=== PATIENT | female | born 1935 | race Caucasian/White ===

== ENCOUNTER 2017-03-08 13:53 | Inpatient (IN) | payer OTHER ==
[~2017-03-08] VITALS: Ht 154.9 cm; Wt 63.5 kg
[2017-03-08] MEDS ORDERED: SIMVASTATIN10 M1 PO (15:57)
[2017-03-08] MEDS ORDERED: DONEPEZIL HCL5 MG PO (15:57)
[2017-03-08] MEDS ORDERED: SERTRALINE HCL50 MG PO (15:59)
[2017-03-08] MEDS ORDERED: ASPIRIN EC81 M1 PO (15:59)
[2017-03-08] MEDS ORDERED: MULTI-DAY VITA1 EACH PO (16:00)
[2017-03-08] MEDS ORDERED: CALCIUM600 M3 PO (16:00)
[2017-03-08] MEDS ORDERED: VITAMIN C500 M7 PO (16:01)
--- NOTE | 2017-03-08 16:20 | ED GI/GU/ABDOMINAL COMPLAINT ---
History of Present Illness General Chief Complaint: General Adult Stated Complaint: NO BM X 10 DAYS Source: family Exam Limitations: dementia Allergies Coded Allergies: No Known Allergies (03/08/17) Reconcile Medications Ascorbic Acid (Vitamin C) (Unknown Strength) CAPSULE.ER (Unknown Dose) PO DAILY SUPPLEMENT (Reported) Aspirin (Ecotrin*) 81 MG TABLET.DR 1 TAB PO DAILY HEART/BLOOD (Reported) Calcium (Elemental-Fr Calcarb) (Calcium) (Unknown Strength) TABLET (Unknown Dose) PO DAILY SUPPLEMENT (Reported) Donepezil HCl 5 MG TABLET 1 TAB PO DAILY MEMORY (Reported) Multivitamin (Multi-Day Vitamins) 1 EACH TABLET 1 TAB PO DAILY SUPPLEMENT ( Reported) Sertraline HCl 50 MG TABLET 1 TAB PO DAILY ANXIETY/DEPRESSION (Reported) Simvastatin (Simvastatin*) 10 MG TABLET 0.5 TAB PO QPM CHOLESTEROL (Reported) Triage Note: PT TO ED WITH FOR NO BM X 10 DAYS. PT HAS ADVANCED ALZHEIMERS PER . STATES PT HAS GONE UP TO 5 DAYS WITH NO BM, BUT NEVER 10. HAS NOT TRIED OTC MEDS. STATES PT DOES NOT COMPLAIN ABOUT PAIN SHE DOES NOT SPEAK. Triage Nurses Notes Reviewed? yes ? N Is pt currently ? No HPI: This patient is an 81-year-old female with a past medical history including Alzheimer's disease who was brought into the emergency department today by her and son for evaluation of constipation. This patient is nonverbal at baseline. The patient's reported that over the last several years she can go up to 5 days without having a bowel movement. Recently she has become incontinent and wears Depends. The patient has been reported that he discontinued giving her her medication approximately 2 weeks ago which includes Aricept and aspirin as well as other vitamins due to the fact that she was not swallowing well. He also reported that it has been approximately 10 days of the patient not having a bowel movement. He reported that occasionally he will notice some soft stool in the diaper and sometimes he will remove some stool himself from the rectum, but other than that has not had a normal bowel movement. Because she is nonverbal, she has not complained of any pain. He denied seeing any blood in the stool. No fevers. No vomiting. (GRAZYNA FLEMING,ZAMZAM) Vital Signs & Intake/Output Vital Signs & Intake/Output Vital Signs Date Time Temp Pulse Resp B/P B/P Pulse O2 O2 Flow FiO2 Mean Ox Delivery Rate 03/10 0629 96.9 63 18 108/70 96 Room Air 03/09 2104 98.2 64 20 112/68 98 Room Air 03/09 1513 97.8 68 18 110/60 97 Room Air 03/09 1446 Room Air Room Air 03/09 1446 96 Room Air ED Intake and Output 03/10 0000 03/09 1200 Intake Total 2440 700 Output Total Balance 2440 700 Intake, IV 1600 700 Intake, Oral 840 Number 0 Bowel Movements Past History Travel History Traveled to [place] past 21 day No Medical History Any Pertinent Medical History? see below for history Neurological: Alzheimer's disease Gastrointestinal: celiac Surgical History Surgical History: non-contributory Psychosocial History What is your primary language Mongolian Tobacco Use: Never used ETOH Use: denies use Illicit Drug Use: denies illicit drug use Family History Hx Contributory? No (ZAMZAM GERONIMO PA-C) Review of Systems Review of Systems Constitutional: Reports: no symptoms. GI: Reports: see HPI. Comments Unable to obtain full review of systems due to the fact that this patient is nonverbal at baseline (ZAMZAM GERONIMO PA-C) Physical Exam Physical Exam Gastrointestinal: soft, non-tender, no organomegaly, HYPOACTIVE BOWEL SOUNDS. nONDISTENDED. nO MASSES APPRECIATED. nO REBOUND OR GUARDING. Comments: Well-developed well-nourished person in no acute distress HEENT: Normal EENT exam, head normocephalic, moist mucous membranes PERRLA Neck: Supple, no lymphadenopathy Back: Normal inspection Cardiovascular: Regular rate and rhythm with no murmurs Respiratory: Breath sounds clear to auscultation bilaterally Extremity: Normal and equal pulses Neuro: Alert, cranial nerves II through XII grossly intact. Skin: No appreciable rash on exposed skin, skin is warm and dry. Psych: Mood and affect is flat Core Measures ACS in differential dx? No Severe Sepsis Present: No Septic Shock Present: No (ZAMZAM GERONIMO PA-C) Progress Differential Diagnosis: AMI, bowel obstruction, gastritis, ischemic bowel, inflamm bowel dis, perforated viscous, SBO Diagnostic Imaging: Viewed by Me: CT Scan. Discussed w/RAD: CT Scan. Radiology Impression: PATIENT: KYE HUNG PRESENT AGE: 81 PATIENT ACCOUNT NO: [id number] : 33 LOCATION: [facility] ORDERING PHYSICIAN: ZAMZAM GERONIMO PA-C SERVICE DATE: 03/08/17 EXAM TYPE: CAT - CT ABD & PELVIS W/O IV CONTRAS EXAMINATION: CT ABDOMEN AND PELVIS WITHOUT CONTRAST CLINICAL INFORMATION: No bowel movement for 10 days. Concern for obstruction COMPARISON: None TECHNIQUE: Multidetector volumetric imaging was performed from the superior aspect of the liver through the pubic symphysis. Sagittal and coronal reformatted images were obtained on the technologist's workstation. DLP: 377.78 mGy-cm FINDINGS: LUNG BASES: The visualized lung bases are unremarkable. There is coronary artery calcification. There is calcification of thoracic aortic wall. LIVER, GALLBLADDER, AND BILIARY TREE: The liver is normal in size, shape, and attenuation. No focal hepatic lesion or biliary ductal dilatation is present. The gallbladder is unremarkable with no evidence of radiopaque gallstones, gallbladder wall thickening, or obvious pericholecystic inflammatory changes. PANCREAS: Unremarkable. SPLEEN: Unremarkable. ADRENAL GLANDS: Unremarkable. KIDNEYS AND URETERS: There are 2 small cortical cysts at the mid upper pole of left kidney. No renal or ureteral calculus. No hydronephrosis. Kidneys are normal in size and contour with normal cortical thickness BLADDER: Unremarkable. GASTROINTESTINAL TRACT: There is a large collection of stool in the rectum and sigmoid. At the level of the hips the colon measures 8 cm transverse. There is mild bowel wall thickening of the distal rectum posteriorly, sagittal image 65 but no edema in the surrounding fat. The remainder of the colonic bowel wall is normal. There is a moderate volume of stool throughout the remainder of the colon. No transition point to indicate obstruction. The appendix is normal. The small bowel loops are unremarkable. ABDOMINAL WALL: No significant hernia is appreciated. LYMPH NODES: Normal. VASCULAR: Atherosclerotic vascular wall calcifications of aorta and iliac vessels and SMA. No aneurysm of the aorta. PELVIC VISCERA: Uterus is retroverted. No adnexal abnormality. OSSEOUS STRUCTURES: Multilevel degenerative change of the spine with disc height narrowing and facet joint arthrosis. There is slight retrolisthesis of L1 on L2 with vacuum disc phenomenon. There is slight anterior listhesis of L4 and L5 with vacuum disc phenomenon and facet joint arthrosis. Marked facet joint arthrosis. Vacuum disc phenomena also L5-S1. IMPRESSION: Fecal impaction in rectum sigmoid. Moderate volume of stool throughout the remainder of colon. No transition point to indicate obstruction. DICTATED BY: AROSE MD,SOURAV DATE/TIME DICTATED:03/08/171736 PIPE JEEPER :NADIRA DATE/TIME TRANSCRIBED:03/08/171736 CONFIDENTIAL, DO NOT COPY WITHOUT APPROPRIATE AUTHORIZATION. <Electronically signed in Other Vendor System> SIGNED BY: SOURAV PURDY MD 03/08/17 1750 Initial ED EKG: normal axis, normal intervals, normal sinus rhythm, LVH, 68 BPM Comments: 03/08/2017 5:19:52 PM: Discussed this patient with Dr. Loya. Sodium level of 160. Dr. Loya ordered normal saline at 200 mL an hour. I updated the patient has been on these results. 03/08/2017 7:01:03 PM: Hospitalist would like to stop the normal saline drip and start D5W at 75 mL an hour. She would also like a repeat sodium level drawn at 8:00 this evening. She would also like urinalysis as well as urine lytes. 03/08/2017 7:17:54 PM: Dr. Loya is currently at the patient's bedside for face to face evaluation. (GRAZYNA FLEMING,ZAMZAM) Plan of Care: Orders Procedure Date/time Status CBC WITHOUT DIFFERENTIAL 03/11 0600 Active BASIC ELECTROLYTES PLUS BUN&CR 03/11 0600 Active SODIUM 03/10 1200 Active CBC WITHOUT DIFFERENTIAL 03/10 0600 Complete BASIC ELECTROLYTES PLUS BUN&CR 03/10 0600 Complete SODIUM 03/10 0100 Complete Gluten Free Diet 03/09 L Active Precautions 03/09 2223 Active RT: Reevaluation 03/09 2058 Active SODIUM 03/09 2000 Complete RT: Evaluation 03/09 1445 Active SODIUM 03/09 1340 Complete Evaluate Swallowing 03/09 UNK Complete THERAPIST ORDERS 03/09 UNK Complete PT EVAL LOW COMPLEX 20 MIN 03/09 UNK Complete Current Medications Sig/Augie Start time Last Medication Dose Stop Time Status Admin Senna/Docusate Sodium 2 TAB DAILY PRN 03/09 1445 AC (Senokot S) Bisacodyl 5 MG DAILY 03/09 1435 AC 03/10 (Dulcolax) 0846 Polyethylene Glycol 17 GM DAILY 03/09 1434 AC 03/10 (Miralax) 0846 Ampicillin Sodium/ 3,000 MG Q6 03/08 2359 AC 03/10 Sulbactam Sodium 0528 (Unasyn) Sodium Chloride 100 ML (Normal Saline 0.9%) Heparin Sodium 5,000 UNIT Q8 03/08 2200 AC 03/10 (Porcine) 0528 Acetaminophen 650 MG Q6P PRN 03/08 2115 AC (Tylenol) Dextrose/Water 500 ML .Q3H20M 03/08 1900 AC 03/10 (D5W) 0847 Laboratory Tests 03/10/17 0636: Anion Gap 11, Estimated GFR > 60, BUN/Creatinine Ratio 17.1, CBC w Diff NO MAN DIFF REQ, RBC 3.98 L, MCV 91.4, MCH 30.5, RDW 14.2, MPV 10.1, Gran % 78.4 H, Lymphocytes % 14.3 L, Monocytes % 6.3, Eosinophils % 0.7, Basophils % 0.3, Absolute Granulocytes 4.6, Absolute Lymphocytes 0.8 L, Absolute Monocytes 0.4, Absolute Eosinophils 0, Absolute Basophils 0, PUBS MCHC 33.4 03/10/17 0120: 03/09/17 2035: 03/09/17 2005: Sodium Cancelled 03/09/17 1555: 03/09/17 1340: Sodium Cancelled, Potassium Cancelled, Chloride Cancelled, Carbon Dioxide Cancelled, Anion Gap Cancelled, BUN Cancelled, Creatinine Cancelled, BUN/ Creatinine Ratio Cancelled Departure Departure Disposition: STILL A PATIENT Condition: Stable Clinical Impression Primary Impression: Hypernatremia Referrals: EVELIO MONTANEZ,CHARLES Dunne (PCP/Family) Departure Forms: Customer Survey General Discharge Information Admission Note [facility] Documentation of Exam: Documentation of any treatments & extenuating circumstances including Concerns Regarding Discharge (functional status, medication knowledge or non-compliance, living conditions, etc.) that warrant an admission rather than observation: [ This patient is an 81-year-old female the past medical history including Alzheimer's dementia and celiac disease who presented to the emergency department today brought in by her for evaluation of constipation. Patient is nonverbal at baseline. CT scan showing sigmoid fecal impaction. Sodium 160. This patient will need to be admitted to general medicine for gentle hydration, trend labs, serial EKGs, gastroenterology consultation, and close monitoring. Premature discharge could prove medically harmful.] (GRAZYNA FLEMING,ZAMZAM) PA/COMMUNICATIONS PLANNER Co-Sign Statement Statement: ED Attending supervision documentation- [X] I saw and evaluated the patient. I have also reviewed all the pertinent lab results and diagnostic results. I agree with the findings and the plan of care as documented in the PA's/COMMUNICATIONS PLANNER's documentation. [] I have reviewed the ED Record and agree with the PA's/COMMUNICATIONS PLANNER's documentation. [] Additions or exceptions (if any) to the PAs/COMMUNICATIONS PLANNER's note and plan are summarized below: [] (J LUIS MONTANEZ,JAY Joaquin)
[2017-03-08 16:43] LABS: ABSOLUTE BASOPHIL COUNT 0 /CUMM (0.0-0.2); ABSOLUTE EOSINOPHIL COUNT 0.1 /CUMM (0.0-0.7); ABSOLUTE GRANULOCYTE CT 5.1 /CUMM (1.4-6.5); ABSOLUTE LYMPH COUNT 1.7 /CUMM (1.2-3.4); ABSOLUTE MONOCYTE COUNT 0.5 /CUMM (0.10-0.60); BASOPHIL % 0.5 % (0.0-2.0); EOSINOPHIL % 1.8 % (0-5); GRANULOCYTE % 67.9 % (42.2-75.2); HEMATOCRIT 42.3 % (37-47); MEAN CORPUSCULAR HGB 29.9 PG (27.0-31.0); MEAN CORPUSCULAR HGB CONC 32.3 G/DL (33.0-37.0); MEAN CORPUSCULAR VOLUME 92.7 FL (81.0-99.0); MEAN PLATELET VOLUME 8.9 FL (7.4-10.4); PLATELET COUNT 157 /CUMM (130-400); RBC DISTRIBUTION WIDTH 15.5 % (11.5-14.5); RED BLOOD CELL CT 4.57 /CUMM (4.20-5.40); WHITE BLOOD CELL COUNT 7.5 /CUMM (4.8-10.8)
--- NOTE | 2017-03-08 17:50 | CT SCAN REPORT ---
EXAMINATION: CT ABDOMEN AND PELVIS WITHOUT CONTRAST CLINICAL INFORMATION: No bowel movement for 10 days. Concern for obstruction COMPARISON: None TECHNIQUE: Multidetector volumetric imaging was performed from the superior aspect of the liver through the pubic symphysis. Sagittal and coronal reformatted images were obtained on the technologist's workstation. DLP: 377.78 mGy-cm FINDINGS: LUNG BASES: The visualized lung bases are unremarkable. There is coronary artery calcification. There is calcification of thoracic aortic wall. LIVER, GALLBLADDER, AND BILIARY TREE: The liver is normal in size, shape, and attenuation. No focal hepatic lesion or biliary ductal dilatation is present. The gallbladder is unremarkable with no evidence of radiopaque gallstones, gallbladder wall thickening, or obvious pericholecystic inflammatory changes. PANCREAS: Unremarkable. SPLEEN: Unremarkable. ADRENAL GLANDS: Unremarkable. KIDNEYS AND URETERS: There are 2 small cortical cysts at the mid upper pole of left kidney. No renal or ureteral calculus. No hydronephrosis. Kidneys are normal in size and contour with normal cortical thickness BLADDER: Unremarkable. GASTROINTESTINAL TRACT: There is a large collection of stool in the rectum and sigmoid. At the level of the hips the colon measures 8 cm transverse. There is mild bowel wall thickening of the distal rectum posteriorly, sagittal image 65 but no edema in the surrounding fat. The remainder of the colonic bowel wall is normal. There is a moderate volume of stool throughout the remainder of the colon. No transition point to indicate obstruction. The appendix is normal. The small bowel loops are unremarkable. ABDOMINAL WALL: No significant hernia is appreciated. LYMPH NODES: Normal. VASCULAR: Atherosclerotic vascular wall calcifications of aorta and iliac vessels and SMA. No aneurysm of the aorta. PELVIC VISCERA: Uterus is retroverted. No adnexal abnormality. OSSEOUS STRUCTURES: Multilevel degenerative change of the spine with disc height narrowing and facet joint arthrosis. There is slight retrolisthesis of L1 on L2 with vacuum disc phenomenon. There is slight anterior listhesis of L4 and L5 with vacuum disc phenomenon and facet joint arthrosis. Marked facet joint arthrosis. Vacuum disc phenomena also L5-S1. IMPRESSION: Fecal impaction in rectum sigmoid. Moderate volume of stool throughout the remainder of colon. No transition point to indicate obstruction.
--- NOTE | 2017-03-08 20:30 | Admission Certification ---
Admission Certification Certification Statement - As attending physician, I certify that at the time of - admission, based on clinical presentation, severity of - symptoms, need for further diagnostic testing and - therapeutic interventions, and risk of adverse outcomes - without in-hospital treatment, in my clinical assessment, - this patient requires an acute hospital stay for a minimum - of two nights or longer. I have also considered psychsocial - factors such as support system, advanced age, financial - issues, cognitive issues, and failed out-patient treatments, - past re-admission history, safety of patient, and lack of - compliance as applicable. Specific rationale supporting this admission is: Hypernatremia, dehydration, constipation. Right upper lobe pneumonia, probably aspiration.
--- NOTE | 2017-03-08 21:07 | History & Physical ---
JAI MEYER 03/08/176: General Information and HPI MD Statement: I have seen and personally examined KYE HUNG and documented this H&P. The patient is a 81 year old F who presented with a patient stated chief complaint of decreased by mouth intake and lack of bowel movement for 2 weeks Source of Information: family Exam Limitations: unable to give history, patient's age, clinical condition, dementia History of Present Illness: This is a 81-year-old female with past medical history significant for advanced alzeihmers dementia, left foot ulcer status post wound debridement over 2 years ago at [facility], celiac disease, hyperlipidemia, depression, nonverbal at baseline, chronic incontinence, anxiety was brought to [facility] emergency department by her , critical care physician assistant with 2 weeks history of decreased by mouth intake and lack of bowel movement. Most of the history was provided by the who is at bedside. Patient is nonverbal at baseline. According to the , he reports that the patient has not been eating or drinking for 2 weeks. She is not taking her medications for 2weeks as she couldn't swallow. She didn't pass her bowels for 2 weeks. she usually has a bowel movement every 3-4 days. According to the , she does ambulate a little but has not been moved in the last couple of weeks. reported left foot wound infection status post debridement at [facility] 2years ago. 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 also states that one year ago she had a breast mass evidence by physical exam and subsequently by ultrasound however they chose to pursue no intervention at that point of time. According to the , She denied any fever, chills, headache, nausea, vomiting, diarrhea, abdominal pain, chest pain, racing of heart, difficulty breathing, fever or chills. No sick contacts. Not recent travel history. Denies smoking, alcohol or illicit drug Use. Allergies/Medications Allergies: Coded Allergies: No Known Allergies (03/08/17) Home Med list Ascorbic Acid (Vitamin C) (Unknown Strength) CAPSULE.ER (Unknown Dose) PO DAILY SUPPLEMENT (Reported) Aspirin (Ecotrin*) 81 MG TABLET.DR 1 TAB PO DAILY HEART/BLOOD (Reported) Calcium (Elemental-Fr Calcarb) (Calcium) (Unknown Strength) TABLET (Unknown Dose) PO DAILY SUPPLEMENT (Reported) Donepezil HCl 5 MG TABLET 1 TAB PO DAILY MEMORY (Reported) Multivitamin (Multi-Day Vitamins) 1 EACH TABLET 1 TAB PO DAILY SUPPLEMENT ( Reported) Sertraline HCl 50 MG TABLET 1 TAB PO DAILY ANXIETY/DEPRESSION (Reported) Simvastatin (Simvastatin*) 10 MG TABLET 0.5 TAB PO QPM CHOLESTEROL (Reported) Compliance With Home Meds: POOR Past History Travel History Traveled to [place] past 21 day No Medical History Neurological: Alzheimer's disease Gastrointestinal: celiac Surgical History Surgical History: non-contributory Past Family/Social History Psychosocial History Smoking Status: Never Smoked ETOH Use: denies use Illicit Drug Use: denies illicit drug use Review of Systems Review of Systems Constitutional: Denies: chills, fever, unexplained weight loss. EENTM: Denies: no symptoms. Cardiovascular: Denies: chest pain, orthopena, palpitations. Respiratory: Denies: cough, short of breath, sputum production. GI: Reports: constipation. Denies: abdominal pain, diarrhea, nausea, vomiting. Genitourinary: Denies: dysuria, frequency. Musculoskeletal: Denies: back pain, muscle pain. Neurological/Psychological: Reports: dementia. Denies: headache, numbness, tingling, tremors. Exam & Diagnostic Data Last 24 Hrs of Vital Signs/I&O Vital Signs Date Time Temp Pulse Resp B/P B/P Pulse O2 O2 Flow FiO2 Mean Ox Delivery Rate 03/08 2245 98.0 63 18 126/82 95 Room Air 03/08 2226 Room Air 03/08 2204 97.8 75 18 134/68 97 Room Air Room Air 03/08 2002 101.2 71 18 138/70 100 Room Air 03/08 1742 97.9 73 18 127/58 99 Room Air 03/08 1414 100.0 107 20 115/84 100 Room Air Intake & Output 03/09 0800 03/09 0000 03/08 1600 Intake Total Output Total Balance Patient 63.503 kg 63.503 kg Weight Weight Reported by Patient Measurement Method Physical Exam General Appearance Alert, not oriented to time place and person Skin No Rashes, No Breakdown HEENT Atraumatic, PERRLA Neck Supple, No JVD Lymphatic Cervical nl Cardiovascular Normal S1, Normal S2 Lungs Normal Air Movement Abdomen Normal Bowel Sounds, Soft, No Tenderness Extremities No Clubbing, No Cyanosis, No Edema Vascular Normal Pulses, Pulses Symmetrical Last 24 Hrs of Labs/Wai: Laboratory Tests 03/08/175: 03/08/172151: Urine Color YEL, Urine Clarity CLEAR, Urine pH 5.5, Ur Specific [place] 1.025, Urine Protein NEG, Urine Ketones NEG, Urine Nitrite NEG, Urine Bilirubin NEG, Urine Urobilinogen 0.2, Ur Leukocyte Esterase NEG, Ur Microscopic EXAM NOT REQUIRED, Urine Hemoglobin NEG, Urine Glucose NEG 03/08/172151: Ur Random Creatinine 163.3, Ur Random Sodium 127 H, Ur Random Potassium 72.4, Fraction Sodium Excret 0.4 03/08/176: 03/08/17 1616: Anion Gap 16, Estimated GFR > 60, BUN/Creatinine Ratio 37.5 H, Glucose 92, Calcium 9.3, Total Bilirubin 0.6, AST 27, ALT 34, Alkaline Phosphatase 91, Troponin I < 0.01, Total Protein 7.4, Albumin 4.1, Globulin 3.3, Albumin/ Globulin Ratio 1.2, TSH 1.600, Free T4 1.37, CBC w Diff NO MAN DIFF REQ, RBC 4.57, MCV 92.7, MCH 29.9, RDW 15.5 H, MPV 8.9, Gran % 67.9, Lymphocytes % 22.8, Monocytes % 7.0, Eosinophils % 1.8, Basophils % 0.5, Absolute Granulocytes 5.1, Absolute Lymphocytes 1.7, Absolute Monocytes 0.5, Absolute Eosinophils 0.1, Absolute Basophils 0, PUBS MCHC 32.3 L, ESR Westergren 41 H Microbiology 03/08 2200 BLOOD: Blood Culture - RECD 03/08 2153 BLOOD: Blood Culture - RECD 03/08 2152 URINE ROUT: Legionella Antigen - COMP 03/08 2152 URINE ROUT: Streptococcus pneumoniae Antigen (M - COMP 03/08 2152 URINE ROUT: Urine Culture - RECD 03/08 2114 LOWER RESP: Respiratory Culture - ORD 03/08 2114 LOWER RESP: Gram Stain - ORD Assessment/Plan Assessment: This is a 81-year-old female with past medical history significant for advanced alzeihmers dementia, left foot ulcer status post wound debridement over 2 years ago at [facility], celiac disease, hyperlipidemia, depression, nonverbal at baseline, chronic incontinence, anxiety was brought to [facility] emergency department by her , critical care physician assistant with 2 weeks history of decreased by mouth intake and lack of bowel movement. Vitals on admission-afebrile, heart rate 75, respiratory rate 18, blood pressure 134/68, 97 on room air. She spiked to 101.2 in the emergency room. Pertinent labs on admission-WBC 7.5, hemoglobin 13.6, hematocrit 42, platelets 157. ESR elevated to 41. Urinalysis normal. Sodium elevated 160. X-ray was normal, no osteomyelitis. Chest x-ray right upper lobe opacity was seen concerning for infiltrate. CAT scan abdomen showed fecal impaction in the rectosigmoid region. Problem list 1. Hypernatremia 2. Pneumonia 3. Dementia 4. Celiac disease 5. Hyperlipidemia 6. Depression 7. Constipation 8. Foot ulcer Hypernatremia According to the , he reports that the patient has not been eating or drinking for 2 weeks. She is not taking her medications for 2weeks as she couldn't swallow. She didn't pass her bowels for 2 weeks. Labs on admission showed hypernatremia of 160. Hypernatremia most possibly due to deficit of water related to sodium. She is hypertonic due to dehydration and poor oral intake. Urine sodium greater than 100 on admission. * Admit to general med floor for further management of hypernatremia * Monitor vitals closely * Maintain oxygen saturation above 90% * Sodium 160 on admission * Will replace free water defecit * On [id number] 40 ml/hour * We'll decrease sodium slowly shouldn't exceed 0.5 mEq per liter per hour. * Repeated sodium after 3 hours- 159 * We will check sodium every 3 hours * Closely monitor vitals pneumonia Patient spiked temperature of 101.2 in the emergency room. Denied any cough, difficulty breathing, sputum production. However chest x-ray showed right upper lobe pneumonia. Possibly aspiration. * Monitor vitals every shift. * Monitor for fever, leukocytosis. * Pancultures * IV antibiotics-unasyn * follow up blood cultures * follow up urine legionella and strep antigen Difficulty swallowing Patient is nothing by mouth tonight Swallow evaluation tomorrow morning Left foot ulcer status post debridement X-ray of left foot ruled out osteomyelitis Podiatric consult in the morning Constipation On bowel regimen Tapwater enema was ordered. Alzheimer's dementia Continue donepezil home Celiac disease On gluten-free diet\ Hyperlipidemia On statins Depression On sertraline DNR/DNI Patient is nothing by mouth Hold all medications for now Pain pathway DVT prophylaxis subcutaneous heparin As Ranked By This Provider Problem List: 1. Hypernatremia Core Measures/Miscellaneous Acute Coronary Syndrome ACS Diagnosis: No Cerebrovascular Accident CVA/TIA Diagnosis: No Congestive Heart Failure CHF Diagnosis: No Venous Thromboembolism VTE Risk Factors: Acute medical illness, Age > 40 No Mech VTE prophylaxis d/t: No contraindications No VTE Pharm Prophylaxis d/t: No contraindications VTE Diagnosis: No VTE Type: NONE VTE Confirmed by (Test): NONE Severe Sepsis Severe Sepsis Present: No Septic Shock Septic Shock Present: No Miscellaneous Documentation Attending Case Discussed With: ROBERTO MONTANEZ,DAV Primary Care Physician: EVELIO MONTANEZ,CHARLES Dunne Patient sees these Specialists podiatry Level of Patient Care: General Medicine ZAC MONTANEZ,JOSE 03/08/176: Resident Review Statement Resident Statement: examined this patient, discussed with consultants intern Other Findings: 81-year-old lady who is medical issues include advanced dementia, left foot ulcer status post wound debridement over 2 years ago at [facility], nonverbal at baseline, chronically incontinent, history anxiety and depression, hyperlipidemia, stays at home with her was the primary caregiver presents to the emergency room with a 2 week history of decreased by mouth intake and lack of bowel movement. Per her who is her primary analysis director she does have a bowel movement every 3-4 days however he has noticed that over the course of last couple of weeks her by mouth intake has been decreased and also she has been not having any bowel movements. States that at baseline she does ambulate a little but has not been done either in the last couple of weeks. Patient herself at baseline is nonverbal however her she is offered no major complaints. While in the emergency room she was noted to have a sodium of 460 and a mild temperature, she's been admitted to general medicine floor for the same. also states that last year she had a breast mass evidence by physical exam and subsequently by ultrasound however they chose to pursue no interventions. Vital signs- stable, temperature 11.2 Significant labs show a sodium of 160, which then corrected to 159 after D5 water CAT scan of the abdomen and pelvis shows fecal impaction in rectum., Moderate volume of stool throughout the remainder of the colon Physical exam- Patient is awake, alert however unclear if she is oriented: Heart lung exam is normal, abdomen shows decreased bowel sounds, mildly distended, nontender; healed ulcer on the base of the first metatarsal Assessment- 1. Hypernatremia; likely secondary to decreased by mouth intake, advanced dementia 2. Dehydration 3. Hyperlipidemia 4. History of advanced dementia 5. Left foot ulcer Plan- - General medicine admission - Vitals per protocol - Panculture - Continue D5 water at 40 mL an hour, do not rapidly overcorrect, goal is 6-8 meq's in 24-hour period - Sodium checks every 3 hours - Nothing by mouth for now - Urine electrolytes - Swallow eval and physical therapy eval in the morning - Podiatry consult in the morning - X-ray of the left foot to rule out osteomyelitis, x-ray of the chest, ESR - Hold all meds for now - Pain pathway - DVT prophylaxis with subcutaneous heparin - DNR/DNI The above-mentioned plan was discussed in detail with the the patient's Mr. Tee Hung he can be reached at [phone]. Also the plan of care was discussed with Mr. Sumit Hung who is the patient's son, he can be reached at [phone]. Both of them confirmed that Mrs. Fox's CODE STATUS is DNR/ DNI. ROBERTO MONTANEZ, [facility] 03/08/172141: Attending MD Review Statement Attending Statement Attending MD Statement: examined this patient, discuss w/resident/PA/REDRYING MACHINE OPERATOR, agreed w/resident/PA/REDRYING MACHINE OPERATOR, discussed with family Attending Assessment/Plan: 81 yo F with h/o advanced dementia (diagnosed 6 yrs ago), anxiety/ depression, celiac disease, HLD, left foot nonhealing wound s/p treatment at [facility] 2 yrs ago, is brought in for constipation (no BM for over 10 days) and poor PO intake. is primary caregiver. Patient is nonverbal at baseline. I spoke with patient's son (Sumit [phone]) who reported overall significant functional decline over past 2 weeks. She has had difficulty swallowing, wherein she keeps the food in her mouth and does not initiate chewing/ mastication. She has however been drinking boost/ensure for past 2-3 days. Vitals: Tmax 101.2, tachycardic to 100's, BP 138/70, sats 100% on RA. Exam: very dry mucous membranes, Chest b/l clear, Heart S1S2 regular, systolic murmur+, Abd soft, NT, Left foot: chronic wound with induration, minimal serous discharge. Pulses well felt. Labs: Na 160, BUN 30, elevated BUN/creat ratio, trop neg, TSH/ free T4 normal. UA clear. EKG: SR. CT abd/pelvis: fecal impaction in rectum sigmoid. No obstruction. Home meds: aspirin, calcium, donepezil, sertraline, simvastatin all of which have been held for over 2 weeks. 1. Acute hypernatremia, dehydration 2/2 poor PO intake. GM admit, free water deficit of 4.1L. Patient received normal saline in ER, this was subsequently switched to D5W on our evaluation. Check urine lytes to assess FeNa and urine sodium excretion. Monitor sodium levels Q4. Avoid overcorrrection, not beyond 6- 8 mEq in 24 hours. Consider Nephro consult if unable to correct appropriately. 2. Dysphagia ?oropharyngeal. NPO, swallow eval in AM. Patient should be on a gluten free diet if ordered. Eventual need for barium swallow, PEG tube, etc. Hold off on all home meds for now. 3. Constipation. Fleet enema now. Once able to take PO, initiate bowel regime. 4. Fever of unclear etiology. UA was negative. We obtained CXR which showed right upper lobe opacity, possible infiltrate. Possible aspiration. Will panculture and treat with IV Unasyn. 5. Chronic left foot wound. Obtain Podiatry consult. Xray of the foot shows degenerative arthropathy, no e/o bone destruction or periosteal reaction. 6. Deconditioning, alzheimer's dementia. PT eval and possible [facility] placement. Frequent orientation. Avoid delirium triggers. DVT ppx Hep SC. DNR/I. I had a detailed discussion with patient's son (Sumit) and subsequently with patient's at bedside. They are agreeable to long-term facility placement if possible.
--- NOTE | 2017-03-08 21:31 | RADIOLOGY REPORT ---
EXAMINATION: XR FOOT, LEFT CLINICAL INFORMATION: Osteomyelitis of left foot. Left foot infection and ulcer COMPARISON: None TECHNIQUE: 2 views of the left foot. FINDINGS: No focal bone destruction or periosteal reaction. There is degenerative arthropathy of the IP joints of the toes in the metatarsal tarsal joints with joint space narrowing subchondral sclerosis of the metatarsal tarsal joints and narrowing of the IP joints of the toes. IMPRESSION: No radiographic evidence for osteomyelitis. MRI would be helpful for further evaluation.
--- NOTE | 2017-03-08 21:32 | RADIOLOGY REPORT ---
EXAMINATION: XR PORTABLE CHEST CLINICAL INFORMATION: Possible aspiration. COMPARISON: None TECHNIQUE: Portable frontal view of the chest was obtained. 9:11 PM FINDINGS: Patchy opacity in the right upper lobe lung apex. This can be further assessed with CT of chest. Left lung is clear. No pulmonary vascular congestion. No pleural effusion or pneumothorax. IMPRESSION: Right upper lobe opacity. Probable infiltrate. This can be further assessed with CT chest. Follow-up chest x-ray to assure complete clearing should be considered.
[2017-03-08 22:45] VITALS: BP 126/82
[2017-03-09 06:56] VITALS: BP 108/64
[2017-03-09 10:02] LABS: ABSOLUTE BASOPHIL COUNT 0 /CUMM (0.0-0.2); ABSOLUTE EOSINOPHIL COUNT 0.2 /CUMM (0.0-0.7); ABSOLUTE GRANULOCYTE CT 4.6 /CUMM (1.4-6.5); ABSOLUTE LYMPH COUNT 1.2 /CUMM (1.2-3.4); ABSOLUTE MONOCYTE COUNT 0.4 /CUMM (0.10-0.60); BASOPHIL % 0.5 % (0.0-2.0); EOSINOPHIL % 2.5 % (0-5); GRANULOCYTE % 71.8 % (42.2-75.2); MEAN CORPUSCULAR HGB 29.9 PG (27.0-31.0); MEAN CORPUSCULAR HGB CONC 32.3 G/DL (33.0-37.0); MEAN CORPUSCULAR VOLUME 92.7 FL (81.0-99.0); MEAN PLATELET VOLUME 9.3 FL (7.4-10.4); PLATELET COUNT 127 /CUMM (130-400); RED BLOOD CELL CT 3.97 /CUMM (4.20-5.40); WHITE BLOOD CELL COUNT 6.4 /CUMM (4.8-10.8)
[2017-03-09 10:15] LABS: HEMATOCRIT 36.8 % (37-47)
--- NOTE | 2017-03-09 10:43 | PN- Housestaff ---
XAVIER MONTANEZ,JOCELYNE 03/09/17 1043: Subjective Follow-up For: Dementia Hypernatremia Subjective: Saw patient at bedside this a.m. She is nonverbal at baseline. She is asleep but arousable. Was not able to answer my questions. Patient was noted to be febrile up to 101.2 overnight. No other acute overnight events noted. Review of Systems Constitutional: Reports: no symptoms. Objective Last 24 Hrs of Vital Signs/I&O Vital Signs Date Time Temp Pulse Resp B/P B/P Pulse O2 O2 Flow FiO2 Mean Ox Delivery Rate 03/09 0656 97.6 62 18 108/64 97 Room Air 03/08 2245 98.0 63 18 126/82 95 Room Air 03/08 2226 Room Air 03/08 2204 97.8 75 18 134/68 97 Room Air Room Air 03/08 2002 101.2 71 18 138/70 100 Room Air 03/08 1742 97.9 73 18 127/58 99 Room Air Intake & Output 03/09 1600 03/09 0800 03/09 0000 Intake Total 700 Output Total Balance 700 Intake, IV 700 Number 0 Bowel Movements Patient 63.503 kg Weight Physical Exam General Appearance: No Acute Distress HEENT: Atraumatic, PERRLA, dry mucous membranes Neck: Supple Cardiovascular: Regular Rate, Normal S1 Lungs: Clear to Auscultation Abdomen: Normal Bowel Sounds, Soft, No Tenderness Extremities: hAS A SMALL SCAB IN PLANTAR SURFACE OF lle. No edema noted Current Medications: Current Medications Sig/Augie Start time Last Medication Dose Route Stop Time Status Admin Acetaminophen 650 MG Q6P PRN 03/08 2115 AC PO Ampicillin Sodium/ 3,000 MG Q6 03/08 2359 AC 03/09 Sulbactam Sodium IV 1113 Sodium Chloride 100 ML Dextrose/Water 500 ML .Q5H 03/08 1900 AC 03/09 IV 1112 Heparin Sodium 5,000 UNIT Q8 03/08 2200 AC 03/09 (Porcine) SC 0541 Patient Medication 1 ED .STK-MED ONE 03/09 1411 DC Teaching ED 03/09 1412 Sodium Chloride 1,000 ML ONCE ONE 03/08 1730 DC 03/08 IV 03/08 2229 1745 Assessment/Plan Assessment: This is an 81-year-old female past medical history significant for advanced Alzheimer's dementia, depression, nonverbal at baseline, chronic incontinence, anxiety, chronic left foot ulcer, who was brought in by her for a 2 week history of decreased by mouth intake and no bowel movement. Initial workup showed sodium of 160, elevated BUN and creatinine, ESR 41, white count 7.5, MAXIMUM TEMPERATURE 101.2 blood pressure 108/64. PLAN 1. Hypernatremia: Patient comes in with sodium 160 with a urine osmolarity of 984. Per nephrology she has a 5 L water deficit. Etiology of hyponatremia most likely secondary to poor by mouth intake given her advanced dementia, on admission her BUN and creatinine were appropriately indicative of prerenal etiology (BUN 30 and Cr 0.8). Patient got 1 L of normal saline in ED during admission. * D5W at 100 mL per hour. Recheck within 4 hours, if serum sodium not appropriately titrating down we will increase rate to 150 mL per hour * Thank you nephrology consult 2. Aspiration Pneumonia versus pneumonitis: Patient came in with a fever of 101.2, but no white count. Her chest x-ray shows a right upper lobe infiltrate. There is concern for aspiration pneumonia given advanced dementia. * Negative strep and Legionella serology * Continue Unasyn 3 every 8 hours * Follow-up blood cultures * Swallow eval; concern for dysphagia * Home PO meds held until swallow eval 3. Foot ulcer: Patient has history of chronic foot ulcer status post wound debridement at [facility] ago. Upon inspection of her left lower extremity, she does have a scab in her plantar surface. Foot x-ray of left foot not indicative of any bony changes. * We will place podiatry consult 4. Dementia: Patient seems to have worsening advanced Alzheimer's dementia. She was at home with who provides most of the care. * Assistance for appropriate discharge per case management * Currently holding all by mouth meds 5. Patient has history of celiac disease: Chronic and stable * Nothing by mouth pending swallow eval Problem List: 1. Hypernatremia Pain Ratin Pain Location: none Pain Goal: Remain pain free Pain Plan: none Tomorrow's Labs & Rationales: cbc bep DVT/Prophylaxis: pharmacological MARICRUZ MONTANO 03/09/17 1211: Attending MD Review Statement Attending Statement Attending MD Statement: examined this patient, discuss w/resident/PA/CREDIT RISK MODELER, agreed w/resident/PA/CREDIT RISK MODELER, discussed with family, reviewed EMR data (avail), discussed with nursing, discussed with case mgmt, reviewed images, amended to note Attending Assessment/Plan: Assessment 1. Hypernatremia; likely secondary to decreased by mouth intake, advanced dementia 2. Dehydration 3. Hyperlipidemia 4. History of advanced dementia 5. Left foot ulcer 6. Aspiration pneumonia (infiltrates) 7. sacral ulcer on admission 8. Poor PO intake 9. Elevated BUN Plan- - admit to inpatient medical services - f/u Panculture, started on empiric unasyn - consult nephrology, correct Na slowly. - Swallow eval and physical therapy eval. - Podiatry consult in the morning - Pain pathway - DVT prophylaxis with subcutaneous heparin - DNR/DNI.
--- NOTE | 2017-03-09 13:27 | Cons- Nephrology ---
General Information and HPI Consulting Request Date of Consult: 03/09/17 Requested By: CHARMAINE MONTANEZ,MARICRUZ Reason for Consult: Hypernatremia History of Present Illness: 81 year old l woman with history of Alzheimer's dementia, celiac disease, depression admitted becuase of no po intake for 2 weeks. She lives at home and is cared for by her . Patient is non-verbal, incontinent but had been taking eating and drinking up until that time. On admission patient had a temp of 101, serum sodium was 160, U osm of 984. She was given some NS in ED, then D5W at 40 cc/hr. Serum sodium fell to 157 but has been steadythere for last few hours. IV rate just increased to 100 cc per hour. She is taking very little by mouth but did just eat some applesauce and drink some water. She also is extremely constipated. FH: negative for kidney disease SH: negative for excess alcohol or smoking. Allergies/Medications Allergies: Coded Allergies: No Known Allergies (03/08/17) Home Med List: Ascorbic Acid (Vitamin C) (Unknown Strength) CAPSULE.ER (Unknown Dose) PO DAILY SUPPLEMENT (Reported) Aspirin (Ecotrin*) 81 MG TABLET.DR 1 TAB PO DAILY HEART/BLOOD (Reported) Calcium (Elemental-Fr Calcarb) (Calcium) (Unknown Strength) TABLET (Unknown Dose) PO DAILY SUPPLEMENT (Reported) Donepezil HCl 5 MG TABLET 1 TAB PO DAILY MEMORY (Reported) Multivitamin (Multi-Day Vitamins) 1 EACH TABLET 1 TAB PO DAILY SUPPLEMENT ( Reported) Sertraline HCl 50 MG TABLET 1 TAB PO DAILY ANXIETY/DEPRESSION (Reported) Simvastatin (Simvastatin*) 10 MG TABLET 0.5 TAB PO QPM CHOLESTEROL (Reported) Current Medications: Current Medications Sig/Augie Start time Last Medication Dose Route Stop Time Status Admin Acetaminophen 650 MG Q6P PRN 03/08 2115 AC PO Ampicillin Sodium/ 3,000 MG Q6 03/08 2359 AC 03/09 Sulbactam Sodium IV 1113 Sodium Chloride 100 ML Dextrose/Water 500 ML .Q5H 03/08 1900 AC 03/09 IV 1112 Heparin Sodium 5,000 UNIT Q8 03/08 2200 AC 03/09 (Porcine) SC 0541 Sodium Chloride 1,000 ML ONCE ONE 03/08 1730 DC 03/08 IV 03/08 2229 1745 Review of Systems Review of Systems: Patient unable to speak, negative when reviewed with . 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 Home Smoking Status: Never Smoked ETOH Use: denies use Illicit Drug Use: denies illicit drug use Exam & Diagnostic Data Vital Signs and I&O Vital Signs Date Time Temp Pulse Resp B/P B/P Pulse O2 O2 Flow FiO2 Mean Ox Delivery Rate 03/09 0656 97.6 62 18 108/64 97 Room Air 03/08 2245 98.0 63 18 126/82 95 Room Air 03/08 2226 Room Air 03/08 2204 97.8 75 18 134/68 97 Room Air Room Air 03/08 2002 101.2 71 18 138/70 100 Room Air 03/08 1742 97.9 73 18 127/58 99 Room Air 03/08 1414 100.0 107 20 115/84 100 Room Air Intake & Output 03/09 1600 03/09 0400 03/08 1600 03/08 0400 03/07 1600 03/07 0400 Intake Total 700 Output Total Balance 700 Intake, IV 700 Number 0 Bowel Movements Patient 140 lb 140 lb Weight Weight Reported by Patient Measurement Method Physical Exam: NAD VS as above. Eyes: anicteric, PERRL Neck: no mass or thyromegaly Nodes: neg cervical and inguinal Skin: no rash or induration Lungs: clear to P&A CV: no rub or murmur Abd: nontender, no organomegaly Exts: no edema, absent pedal pulses Neuro: awake, nonverbal, CN grossly intake, no myoclonus Results Pertinent Lab Results: Laboratory Tests 03/09 03/09 03/09 03/08 0900 0634 0320 2345 Chemistry Sodium (137 - 145 mmol/L) 157 *H 157 *H 159 *H 159 *H Hematology CBC w Diff NO MAN DIFF REQ WBC (4.8 - 10.8 /CUMM) 6.4 RBC (4.20 - 5.40 /CUMM) 3.97 L Hgb (12.0 - 16.0 G/DL) 11.9 L Hct (37 - 47 %) 36.8 L MCV (81.0 - 99.0 FL) 92.7 MCH (27.0 - 31.0 PG) 29.9 RDW (11.5 - 14.5 %) 15.0 H Plt Count (130 - 400 /CUMM) 127 L MPV (7.4 - 10.4 FL) 9.3 Gran % (42.2 - 75.2 %) 71.8 Lymphocytes % (20.5 - 51.1 %) 19.3 L Monocytes % (1.7 - 9.3 %) 5.9 Eosinophils % (0 - 5 %) 2.5 Basophils % (0.0 - 2.0 %) 0.5 Absolute Granulocytes (1.4 - 6.5 /CUMM) 4.6 Absolute Lymphocytes (1.2 - 3.4 /CUMM) 1.2 Absolute Monocytes (0.10 - 0.60 /CUMM) 0.4 Absolute Eosinophils (0.0 - 0.7 /CUMM) 0.2 Absolute Basophils (0.0 - 0.2 /CUMM) 0 PUBS MCHC (33.0 - 37.0 G/DL) 32.3 L 03/08 Chemistry Sodium (137 - 145 mmol/L) 159 *H Urines Urine Color (YEL,AMB,STR) YEL Urine Clarity (CLEAR) CLEAR Urine pH (5.0 - 8.0) 5.5 Ur Specific [place] (1.001 - 1.035) 1.025 Urine Protein (NEG,<30 MG/DL) NEG Urine Ketones (NEG) NEG Urine Nitrite (NEG) NEG Urine Bilirubin (NEG) NEG Urine Urobilinogen (0.1 - 1.0 EU/dl) 0.2 Ur Leukocyte Esterase (NEG) NEG Ur Microscopic EXAM NOT REQUIRED Urine Hemoglobin (NEG) NEG Urine Osmolality (300 - 1000 MOSM/KG) 984 Ur Random Creatinine (mg/dL) 163.3 Ur Random Sodium (30 - 90 mmol/L) 127 H Ur Random Potassium (mmol/L) 72.4 Fraction Sodium Excret (<1% %) 0.4 Urine Glucose (N MG/DL) NEG 03/08 1616 Chemistry Sodium (137 - 145 mmol/L) 160 *H Potassium (3.5 - 5.1 mmol/L) 4.1 Chloride (98 - 107 mmol/L) 117 H Carbon Dioxide (22 - 30 mmol/L) 27 Anion Gap (5 - 16) 16 BUN (7 - 17 mg/dL) 30 H Creatinine (0.5 - 1.0 mg/dL) 0.8 Estimated GFR (>60 ml/min) > 60 BUN/Creatinine Ratio (7 - 25 %) 37.5 H Glucose (65 - 99 mg/dL) 92 Calcium (8.4 - 10.2 mg/dL) 9.3 Total Bilirubin (0.2 - 1.3 mg/dL) 0.6 AST (14 - 36 U/L) 27 ALT (9 - 52 U/L) 34 Alkaline Phosphatase (<127 U/L) 91 Troponin I (< 0.11 ng/ml) < 0.01 Total Protein (6.3 - 8.2 g/dL) 7.4 Albumin (3.5 - 5.0 g/dL) 4.1 Globulin (1.9 - 4.2 gm/dL) 3.3 Albumin/Globulin Ratio (1.1 - 2.2 %) 1.2 TSH (0.270 - 4.200 uIU/mL) 1.600 Free T4 (0.85 - 1.93 ng/dL) 1.37 Hematology CBC w Diff NO MAN DIFF REQ WBC (4.8 - 10.8 /CUMM) 7.5 RBC (4.20 - 5.40 /CUMM) 4.57 Hgb (12.0 - 16.0 G/DL) 13.6 Hct (37 - 47 %) 42.3 MCV (81.0 - 99.0 FL) 92.7 MCH (27.0 - 31.0 PG) 29.9 RDW (11.5 - 14.5 %) 15.5 H Plt Count (130 - 400 /CUMM) 157 MPV (7.4 - 10.4 FL) 8.9 Gran % (42.2 - 75.2 %) 67.9 Lymphocytes % (20.5 - 51.1 %) 22.8 Monocytes % (1.7 - 9.3 %) 7.0 Eosinophils % (0 - 5 %) 1.8 Basophils % (0.0 - 2.0 %) 0.5 Absolute Granulocytes (1.4 - 6.5 /CUMM) 5.1 Absolute Lymphocytes (1.2 - 3.4 /CUMM) 1.7 Absolute Monocytes (0.10 - 0.60 /CUMM) 0.5 Absolute Eosinophils (0.0 - 0.7 /CUMM) 0.1 Absolute Basophils (0.0 - 0.2 /CUMM) 0 PUBS MCHC (33.0 - 37.0 G/DL) 32.3 L ESR Westergren (0 - 20 MM) 41 H Assessment/Plan Assessment/Recommendations Assessment: Hypernatremia due to lack of fluid intake. Urine appropriately concentrated. She has about a 5000 cc liter water deficit. Wish to replace this deficit over >48 hours, which means an IV rate of at least 100 cc/hr, which does not account for ongoing insensible loss and urinary loss. Recommendations: Currently on 100 cc/hr of D5W but suspect this may be too little given above. If serum sodium not fallling on blood work later todya would increase rate to 150 cc/hr. Thank you for this consult.
[2017-03-09 15:13] VITALS: BP 110/60
--- NOTE | 2017-03-09 15:56 | Discharge Summary ---
See Addendum Visit Information Visit Dates Admission Date: 03/08/17 Discharge Date: 03/11/16 Hospital Course Course Attending Physician: MARICRUZ MONTANO MD Primary Care Physician: EVELIO MONTANEZ,CHARLES Dunne Hospital Course: 81 yo F with h/o advanced dementia (diagnosed 6 yrs ago), anxiety/ depression, celiac disease, HLD, left foot nonhealing wound s/p treatment at [facility] 2 yrs ago, is brought in for constipation (no BM for over 10 days) and poor PO intake. is primary caregiver. Patient is nonverbal at baseline. I spoke with patient's son (Sumit [phone]) who reported overall significant functional decline over past 2 weeks. She has had difficulty swallowing, wherein she keeps the food in her mouth and does not initiate chewing/ mastication. She has however been drinking boost/ensure for past 2-3 days. Vitals: Tmax 101.2, tachycardic to 100's, BP 138/70, sats 100% on RA. Exam: very dry mucous membranes, Chest b/l clear, Heart S1S2 regular, systolic murmur+, Abd soft, NT, Left foot: chronic wound with induration, minimal serous discharge. Pulses well felt. Labs: Na 160, BUN 30, elevated BUN/creat ratio, trop neg, TSH/ free T4 normal. UA clear. EKG: SR. CT abd/pelvis: fecal impaction in rectum sigmoid. No obstruction. Home meds: aspirin, calcium, donepezil, sertraline, simvastatin all of which have been held for over 2 weeks. 1. Hypernatremia; likely secondary to decreased by mouth intake, advanced dementia 2. Dehydration and poor PO intake 3. Hyperlipidemia 4. History of advanced dementia 5. Chronic Left foot ulcer 6. Stage 2 Pressure Ulcers ,B/L buttocks on admission-Stable The patient was treated in the hospital and was managed for acute hypernatremia. her fluid defcit was 5 L. We rehydrated with D5W Sodium was corrected to the normal levels. Her Sodium was 145. For her poor PO intake she was evaluated by the speech therapy. She was instructed to be on pureed and thin liquid diet She was also evlauated by the chronic lft foor ulcer by the podaitris. No intervention was advised and was instructed to f/u with Dr Jean Baptiste if she feels necesary. She will be discharged to home with [facility]. Allergies: Coded Allergies: No Known Allergies (03/08/17) Pertinent Lab Results: Laboratory Tests 03/10 03/10 03/09 03/09 03/09 0636 0120 2034 2004 155 Chemistry Sodium (137 - 145 mmol/L) Pending 148 H 149 H Cancelled 150 H Potassium Pending Chloride Pending Carbon Dioxide Pending Anion Gap Pending BUN Pending Creatinine Pending BUN/Creatinine Ratio Pending Hematology CBC w Diff Pending WBC Pending RBC Pending Hgb Pending Hct Pending MCV Pending MCH Pending RDW Pending Plt Count Pending MPV Pending PUBS MCHC Pending 03/09 03/09 03/09 1340 0900 0634 Chemistry Sodium (137 - 145 mmol/L) Cancelled 157 *H 157 *H Potassium Cancelled Chloride Cancelled Carbon Dioxide Cancelled Anion Gap Cancelled BUN Cancelled Creatinine Cancelled BUN/Creatinine Ratio Cancelled Hematology CBC w Diff NO MAN DIFF REQ WBC (4.8 - 10.8 /CUMM) 6.4 RBC (4.20 - 5.40 /CUMM) 3.97 L Hgb (12.0 - 16.0 G/DL) 11.9 L Hct (37 - 47 %) 36.8 L MCV (81.0 - 99.0 FL) 92.7 MCH (27.0 - 31.0 PG) 29.9 RDW (11.5 - 14.5 %) 15.0 H Plt Count (130 - 400 /CUMM) 127 L MPV (7.4 - 10.4 FL) 9.3 Gran % (42.2 - 75.2 %) 71.8 Lymphocytes % (20.5 - 51.1 %) 19.3 L Monocytes % (1.7 - 9.3 %) 5.9 Eosinophils % (0 - 5 %) 2.5 Basophils % (0.0 - 2.0 %) 0.5 Absolute Granulocytes (1.4 - 6.5 /CUMM) 4.6 Absolute Lymphocytes (1.2 - 3.4 /CUMM) 1.2 Absolute Monocytes (0.10 - 0.60 /CUMM) 0.4 Absolute Eosinophils (0.0 - 0.7 /CUMM) 0.2 Absolute Basophils (0.0 - 0.2 /CUMM) 0 PUBS MCHC (33.0 - 37.0 G/DL) 32.3 L 03/090 5 215 Chemistry Sodium (137 - 145 mmol/L) 159 *H 159 *H Urines Urine Color (YEL,AMB,STR) YEL Urine Clarity (CLEAR) CLEAR Urine pH (5.0 - 8.0) 5.5 Ur Specific [place] (1.001 - 1.035) 1.025 Urine Protein (NEG,<30 MG/DL) NEG Urine Ketones (NEG) NEG Urine Nitrite (NEG) NEG Urine Bilirubin (NEG) NEG Urine Urobilinogen (0.1 - 1.0 EU/dl) 0.2 Ur Leukocyte Esterase (NEG) NEG Ur Microscopic EXAM NOT REQUIRED Urine Hemoglobin (NEG) NEG Urine Glucose (N MG/DL) NEG 03/08 161 Chemistry Sodium (137 - 145 mmol/L) 159 *H 160 *H Potassium (3.5 - 5.1 mmol/L) 4.1 Chloride (98 - 107 mmol/L) 117 H Carbon Dioxide (22 - 30 mmol/L) 27 Anion Gap (5 - 16) 16 BUN (7 - 17 mg/dL) 30 H Creatinine (0.5 - 1.0 mg/dL) 0.8 Estimated GFR (>60 ml/min) > 60 BUN/Creatinine Ratio (7 - 25 %) 37.5 H Glucose (65 - 99 mg/dL) 92 Calcium (8.4 - 10.2 mg/dL) 9.3 Total Bilirubin (0.2 - 1.3 mg/dL) 0.6 AST (14 - 36 U/L) 27 ALT (9 - 52 U/L) 34 Alkaline Phosphatase (<127 U/L) 91 Troponin I (< 0.11 ng/ml) < 0.01 Total Protein (6.3 - 8.2 g/dL) 7.4 Albumin (3.5 - 5.0 g/dL) 4.1 Globulin (1.9 - 4.2 gm/dL) 3.3 Albumin/Globulin Ratio (1.1 - 2.2 %) 1.2 TSH (0.270 - 4.200 uIU/mL) 1.600 Free T4 (0.85 - 1.93 ng/dL) 1.37 Hematology CBC w Diff NO MAN DIFF REQ WBC (4.8 - 10.8 /CUMM) 7.5 RBC (4.20 - 5.40 /CUMM) 4.57 Hgb (12.0 - 16.0 G/DL) 13.6 Hct (37 - 47 %) 42.3 MCV (81.0 - 99.0 FL) 92.7 MCH (27.0 - 31.0 PG) 29.9 RDW (11.5 - 14.5 %) 15.5 H Plt Count (130 - 400 /CUMM) 157 MPV (7.4 - 10.4 FL) 8.9 Gran % (42.2 - 75.2 %) 67.9 Lymphocytes % (20.5 - 51.1 %) 22.8 Monocytes % (1.7 - 9.3 %) 7.0 Eosinophils % (0 - 5 %) 1.8 Basophils % (0.0 - 2.0 %) 0.5 Absolute Granulocytes (1.4 - 6.5 /CUMM) 5.1 Absolute Lymphocytes (1.2 - 3.4 /CUMM) 1.7 Absolute Monocytes (0.10 - 0.60 /CUMM) 0.5 Absolute Eosinophils (0.0 - 0.7 /CUMM) 0.1 Absolute Basophils (0.0 - 0.2 /CUMM) 0 PUBS MCHC (33.0 - 37.0 G/DL) 32.3 L ESR Westergren (0 - 20 MM) 41 H Urines Urine Osmolality (300 - 1000 MOSM/KG) 984 Ur Random Creatinine (mg/dL) 163.3 Ur Random Sodium (30 - 90 mmol/L) 127 H Ur Random Potassium (mmol/L) 72.4 Fraction Sodium Excret (<1% %) 0.4 Disposition Summary Disposition Principal Diagnosis: 1. Hypernatremia; likely secondary to decreased by mouth intake, advanced dementia Additional Diagnosis: 2. Dehydration 3. Hyperlipidemia 4. History of advanced dementia 5. Left foot ulcer Discharge Disposition: SNF Discharge Instructions General Discharge Information Code Status: Do Not Resucitate/Intubat Patient's Diet: As tolerated she was passed on the pureed and clear liquid diet Patient's Activity: as tolerated Follow-Up Instructions/Appts: f/u with pcp f/u dr jean baptiste in a month if persistent pain Medications at Discharge Discharge Medications: Continue taking these medications: Simvastatin (Simvastatin*) 10 MG TABLET 0.5 Tablet ORAL Every night Qty = 90 Donepezil HCl (Donepezil HCl) 5 MG TABLET 1 Tablet ORAL DAILY Qty = 90 Sertraline HCl (Sertraline HCl) 50 MG TABLET 1 Tablet ORAL DAILY Qty = 90 Aspirin (Ecotrin*) 81 MG TABLET.DR 1 Tablet ORAL DAILY Multivitamin (Multi-Day Vitamins) 1 EACH TABLET 1 Tablet ORAL DAILY Calcium (Elemental-Fr Calcarb) (Calcium) (Unknown Strength) TABLET 1 Capsule ORAL DAILY Ascorbic Acid (Vitamin C) (Unknown Strength) CAPSULE.ER 1 Capsule ORAL DAILY Start taking the following new medications: Bisacodyl (Bisacodyl) 5 MG TABLET.DR 5 Milligram ORAL DAILY as needed for CONSTIPATION Qty = 30 No Refills Sennosides/Docusate Sodium (Senna Plus Tablet) 8.6 MG-50 MG TABLET 2 Tablet ORAL DAILY as needed for CONSTIPATION Qty = 30 No Refills Amoxicillin/Potassium Clav (Augmentin 875-125 Tablet) 875 MG-125 MG TABLET 1 Tablet ORAL TWICE DAILY Days = 4 No Refills Copies To: VEELIO MONTANEZ,CHARLES Dunne
[2017-03-09 21:04] VITALS: BP 112/68
[2017-03-10 06:29] VITALS: BP 108/70
[2017-03-10 08:44] LABS: ABSOLUTE BASOPHIL COUNT 0 /CUMM (0.0-0.2); ABSOLUTE EOSINOPHIL COUNT 0 /CUMM (0.0-0.7); ABSOLUTE GRANULOCYTE CT 4.6 /CUMM (1.4-6.5); ABSOLUTE LYMPH COUNT 0.8 /CUMM (1.2-3.4); ABSOLUTE MONOCYTE COUNT 0.4 /CUMM (0.10-0.60); BASOPHIL % 0.3 % (0.0-2.0); EOSINOPHIL % 0.7 % (0-5); GRANULOCYTE % 78.4 % (42.2-75.2); HEMATOCRIT 36.4 % (37-47); MEAN CORPUSCULAR HGB 30.5 PG (27.0-31.0); MEAN CORPUSCULAR HGB CONC 33.4 G/DL (33.0-37.0); MEAN CORPUSCULAR VOLUME 91.4 FL (81.0-99.0); MEAN PLATELET VOLUME 10.1 FL (7.4-10.4); RBC DISTRIBUTION WIDTH 14.2 % (11.5-14.5); RED BLOOD CELL CT 3.98 /CUMM (4.20-5.40); WHITE BLOOD CELL COUNT 5.8 /CUMM (4.8-10.8)
--- NOTE | 2017-03-10 08:52 | PN- Housestaff ---
XAVIER MONTANEZ,JOCELYNE 03/10/17 0834: Subjective Follow-up For: hypernatremia Subjective: Saw pt at bedside. Nonverbal at baseline. Pt rousable unable to report any complaints. Review of Systems Constitutional: Reports: no symptoms. Objective Last 24 Hrs of Vital Signs/I&O Vital Signs Date Time Temp Pulse Resp B/P B/P Pulse O2 O2 Flow FiO2 Mean Ox Delivery Rate 03/10 0629 96.9 63 18 108/70 96 Room Air 03/09 2104 98.2 64 20 112/68 98 Room Air 03/09 1513 97.8 68 18 110/60 97 Room Air 03/09 1446 Room Air Room Air 03/09 1446 96 Room Air Intake & Output 03/10 1600 03/10 0800 03/10 0000 Intake Total 600 1400 Output Total Balance 600 1400 Intake, IV 600 800 Intake, Oral 600 Number 3 Bowel Movements Physical Exam General Appearance: No Acute Distress Skin: No Significant Lesion HEENT: Atraumatic, PERRLA Neck: Supple Cardiovascular: Regular Rate, Normal S1, Normal S2 Lungs: Normal Air Movement Abdomen: Soft, No Tenderness Extremities: No Clubbing, Normal Pulses, lesion on RLE looks scabbed. no erythema Current Medications: Current Medications Sig/Augie Start time Last Medication Dose Route Stop Time Status Admin Acetaminophen 650 MG Q6P PRN 03/08 2115 AC PO Ampicillin Sodium/ 3,000 MG Q6 03/08 2359 AC 03/10 Sulbactam Sodium IV 0528 Sodium Chloride 100 ML Bisacodyl 5 MG DAILY 03/09 1435 AC 03/09 PO 1848 Dextrose/Water 500 ML .Q3H20M 03/08 1900 r 03/10 IV 0530 Heparin Sodium 5,000 UNIT Q8 03/08 2200 AC 03/10 (Porcine) SC 0528 Patient Medication 1 ED .STK-MED ONE 03/09 1411 MO Teaching ED 03/09 1412 Polyethylene Glycol 17 GM DAILY 03/09 1434 AC 03/09 PO 1849 Senna/Docusate Sodium 2 TAB DAILY PRN 03/09 1445 AC PO Last 24 Hrs of Lab/Wai Results Last 24 Hrs of Labs/Mics: Laboratory Tests 03/10/17 0636: Anion Gap 11, Estimated GFR > 60, BUN/Creatinine Ratio 17.1, CBC w Diff Pending, WBC Pending, RBC Pending, Hgb Pending, Hct Pending, MCV Pending, MCH Pending, RDW Pending, Plt Count Pending, MPV Pending, PUBS MCHC Pending 03/10/17 0120: 03/09/17 2035: 03/09/17 2005: Sodium Cancelled 03/09/17 1555: 03/09/17 1340: Sodium Cancelled, Potassium Cancelled, Chloride Cancelled, Carbon Dioxide Cancelled, Anion Gap Cancelled, BUN Cancelled, Creatinine Cancelled, BUN/ Creatinine Ratio Cancelled 03/09/17 0900: CBC w Diff NO MAN DIFF REQ, RBC 3.97 L, MCV 92.7, MCH 29.9, RDW 15.0 H, MPV 9.3, Gran % 71.8, Lymphocytes % 19.3 L, Monocytes % 5.9, Eosinophils % 2.5, Basophils % 0.5, Absolute Granulocytes 4.6, Absolute Lymphocytes 1.2, Absolute Monocytes 0.4, Absolute Eosinophils 0.2, Absolute Basophils 0, PUBS MCHC 32.3 L Assessment/Plan Assessment: This is an 81-year-old female past medical history significant for advanced Alzheimer's dementia, depression, nonverbal at baseline, chronic incontinence, anxiety, chronic left foot ulcer, who was brought in by her for a 2 week history of decreased by mouth intake and no bowel movement. Initial workup showed sodium of 160, elevated BUN and creatinine, ESR 41, white count 7.5, MAXIMUM TEMPERATURE 101.2 blood pressure 108/64. PLAN 1. Hypernatremia: Patient comes in with sodium 160 with a urine osmolarity of 984. After 24 hrs D5W then trended down to 146--149--148. Per nephrology she has a 5 L water deficit, con't D5W. Etiology of hyponatremia most likely secondary to poor by mouth intake given her advanced dementia. * D5W at 150 mL per hour. * Recheck at noon * Thank you nephrology consult 2. Aspiration Pneumonia versus pneumonitis: Patient came in with a fever of 101.2, but no white count; PENDING LABS THIS AM. Her chest x-ray shows a right upper lobe infiltrate. There is concern for aspiration pneumonia given advanced dementia. * Negative strep and Legionella serology * Continue Unasyn 3 every 8 hours (DAY 2) * Follow-up blood cultures * Swallow eval; concern for dysphagia * Home PO meds held until swallow eval 3. Foot ulcer: Patient has history of chronic foot ulcer status post wound debridement at [facility] 2 years ago. Upon inspection of her left lower extremity, she does have a scab in her plantar surface. Foot x-ray of left foot not indicative of any bony changes. * We will place podiatry consult 4. Dementia: Patient seems to have worsening advanced Alzheimer's dementia. She was at home with who provides most of the care. * Assistance for appropriate discharge per case management * Currently holding all by mouth meds including sertraline and Namenda. 5. Patient has history of celiac disease: Chronic and stable * Puree and thin liquid diet, gluten free Problem List: 1. Hypernatremia Pain Ratin Pain Location: none Pain Goal: Remain pain free Pain Plan: none Tomorrow's Labs & Rationales: bep cbc MARICRUZ MONTANO 03/10/17 1353: Attending MD Review Statement Attending Statement Attending MD Statement: examined this patient, discuss w/resident/PA/INSPECTOR SHELLS, agreed w/resident/PA/INSPECTOR SHELLS, discussed with family, reviewed EMR data (avail), discussed with nursing, discussed with case mgmt, reviewed images, amended to note Attending Assessment/Plan: Assessment 1. Hypernatremia; likely secondary to decreased by mouth intake, advanced dementia 2. Dehydration 3. Hyperlipidemia 4. History of advanced dementia 5. Left foot ulcer 6. Aspiration pneumonia (infiltrates) 7. sacral ulcer on admission 8. Poor PO intake 9. Elevated BUN Plan- - admit to inpatient medical services - f/u [facility], started on empiric unasyn D2 can change to PO abx. - nephrology on board, Na improved - Swallow eval recommend puree diet and physical therapy eval. - Pain pathway - DVT prophylaxis with subcutaneous heparin - DNR/DNI. - Skin and fall precautions. 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 d/c planning, conuslt case management.
[2017-03-10 10:01] LABS: PLATELET COUNT 92 /CUMM (130-400)
[2017-03-10 14:29] VITALS: BP 100/60
[2017-03-10 18:13] VITALS: BP 98/60
[2017-03-10] MEDS ORDERED: SENNA PLUS TAB1 EACH PO (21:27)
[2017-03-10] MEDS ORDERED: BISACODYL5 M1 PO (21:27)
[2017-03-10] MEDS ORDERED: AUGMENTIN 875-1 EACH PO (21:28)
[2017-03-10 23:19] VITALS: BP 110/62
[2017-03-11 07:02] LABS: ABSOLUTE BASOPHIL COUNT 0 /CUMM (0.0-0.2); ABSOLUTE EOSINOPHIL COUNT 0.1 /CUMM (0.0-0.7); ABSOLUTE GRANULOCYTE CT 2.2 /CUMM (1.4-6.5); ABSOLUTE LYMPH COUNT 1.2 /CUMM (1.2-3.4); ABSOLUTE MONOCYTE COUNT 0.3 /CUMM (0.10-0.60); BASOPHIL % 0.7 % (0.0-2.0); EOSINOPHIL % 3.6 % (0-5); MEAN CORPUSCULAR HGB 30.7 PG (27.0-31.0); MEAN CORPUSCULAR VOLUME 90.3 FL (81.0-99.0); MEAN PLATELET VOLUME 8.7 FL (7.4-10.4); RBC DISTRIBUTION WIDTH 14.3 % (11.5-14.5); RED BLOOD CELL CT 3.44 /CUMM (4.20-5.40); WHITE BLOOD CELL COUNT 3.9 /CUMM (4.8-10.8)
--- NOTE | 2017-03-11 07:20 | PN- Housestaff ---
XAVIER MONTANEZ,JOCELYNE 03/11/17 0720: Subjective Follow-up For: alzheimers dementia Subjective: saw pt at bedside this am. She is non-verbal at baseline and was unable to share any complaints. No overnight events. Review of Systems Constitutional: Reports: no symptoms. Objective Last 24 Hrs of Vital Signs/I&O Vital Signs Date Time Temp Pulse Resp B/P B/P Pulse O2 O2 Flow FiO2 Mean Ox Delivery Rate 03/11 0745 98.4 66 18 122/70 99 Room Air 03/10 2319 98.1 73 18 110/62 96 Room Air 03/10 1813 97.9 60 18 98/60 96 Room Air 03/10 1429 98.6 70 18 100/60 97 Room Air Intake & Output 03/11 1600 03/11 0800 03/11 0000 Intake Total 800 400 Output Total Balance 800 400 Intake, IV 800 400 Patient 63.503 kg Weight Physical Exam General Appearance: Alert, Oriented X3, Cooperative, No Acute Distress Skin: No Rashes, No Significant Lesion HEENT: Atraumatic, PERRLA, EOMI Neck: Supple Cardiovascular: Regular Rate, Normal S1, Normal S2 Lungs: Normal Air Movement Abdomen: Soft, No Tenderness Assessment/Plan Assessment: This is an 81-year-old female past medical history significant for advanced Alzheimer's dementia, depression, nonverbal at baseline, chronic incontinence, anxiety, chronic left foot ulcer, who was brought in by her for a 2 week history of decreased by mouth intake and no bowel movement. Initial workup showed sodium of 160, elevated BUN and creatinine, ESR 41, white count 7.5, MAXIMUM TEMPERATURE 101.2 blood pressure 108/64. PLAN 1. Hypernatremia: Patient comes in with sodium 160 with a urine osmolarity of 984. After 24 hrs D5W then trended down to 146--149--148--> 145. Per nephrology she had a 5 L water deficit. Etiology of hyponatremia most likely secondary to poor by mouth intake given advanced dementia. * D/C D5W * Thank you nephrology consult 2. Aspiration Pneumonia versus pneumonitis: Patient came in with a fever of 101.2, but no white count; WBC 5.8. Her chest x-ray shows a right upper lobe infiltrate. There is concern for aspiration pneumonia given advanced dementia. * Negative strep and Legionella serology * Continue Unasyn 3 every 8 hours (DAY 2)--> SWITCH TO AUGMENTIN AND D.C TODAY * Follow-up blood cultures NGTD * Swallow eval showing puree and thin liquid * Home PO meds restarted 3. Foot ulcer: Patient has history of chronic foot ulcer status post wound debridement at [place] 2 years ago. Upon inspection of her left lower extremity, she does have a scab in her plantar surface. Foot x-ray of left foot not indicative of any bony changes. * Follow up otu pt 4. Dementia: Patient seems to have worsening advanced Alzheimer's dementia. She was at home with who provides most of the care. * Home with home nursing * Currently holding all by mouth meds including sertraline and Namenda. 5. Patient has history of celiac disease: Chronic and stable * Puree and thin liquid diet, gluten free 6. Thrombocytopenia: Pt came in with plt 157--> 127--> 92 today. No known etiology. Concern for antibiotic induced thrombocytopenia; rare with Unasyn. Will switch to augmentin. * start augmentin * Out pt f/u for plt count 7. Stage 2 decubitus ulcer: Pt has ulcer present in buttock region. Present on admission. No open sores. Problem List: 1. Hypernatremia Pain Ratin Pain Location: none Pain Goal: Remain pain free Pain Plan: none Tomorrow's Labs & Rationales: none MARICRUZ MONTANO 03/11/17 1116: Attending MD Review Statement Attending Statement Attending MD Statement: examined this patient, discuss w/resident/PA/HORTICULTURE PROFESSOR, agreed w/resident/PA/HORTICULTURE PROFESSOR, discussed with family, reviewed EMR data (avail), discussed with nursing, discussed with case mgmt, reviewed images, amended to note Attending Assessment/Plan: Assessment 1. Hypernatremia; likely secondary to decreased by mouth intake, advanced dementia 2. Dehydration 3. Hyperlipidemia 4. History of advanced dementia 5. Left foot ulcer 6. Aspiration pneumonia (infiltrates) 7. sacral ulcer on admission 8. Poor PO intake 9. Elevated BUN Plan- - admit to inpatient medical services - f/u [facility], started on empiric unasyn changed to PO abx. - nephrology on board, Na improved - Swallow eval recommend puree diet and physical therapy eval. - Pain pathway - DVT prophylaxis with subcutaneous heparin - DNR/DNI. - Skin and fall precautions. Alzheimer dementia with total care, overall senior care prognosis poor. d/c planning home with [facility].
[2017-03-11 07:24] LABS: PLATELET COUNT 97 /CUMM (130-400)
[2017-03-11 07:45] VITALS: BP 122/70
--- NOTE | 2017-03-11 14:42 | RADIOLOGY REPORT ---
EXAMINATION: XR PORTABLE CHEST CLINICAL INFORMATION: 81-year-old female with suspected aspiration pneumonia. COMPARISON: Chest done on 03/08/2017. TECHNIQUE: Portable AP view of the chest was obtained. FINDINGS: Interval development of dense airspace consolidation is noted in the retrocardiac region of the left lower lobe, consistent with pneumonia. Previously documented bilateral upper lobe (right greater than left) nonspecific airspace disease appears stable. The remainder of the lung field bilaterally appear clear. The cardiomediastinal silhouette is within normal limits. There is no pleural effusion present. The visualized upper abdomen is unremarkable. IMPRESSION: Interval development of dense airspace consolidation is noted in the retrocardiac region of the left lower lobe, consistent with pneumonia. No other significant change since 03/08/2017. Follow-up radiograph to document resolution is recommended.
== END 2017-03-11 14:06 | disposition home health service (06) | DRG 640 ==
LOC: ERH 13:53 → 2NB 19:29 → ERHI 19:29 → ENRESERV 19:51 → 2NB 22:19 → ENPENDDIS 03-11 10:57 → 2NB 03-11 14:06
PROVIDERS: Internal Medicine Nephrology; Physician Assistant; Student in an Organized Health Care Education/Training Program; ADMIT Student in an Organized Health Care Education/Training Program
DX: E87.0 Hyperosmolality and hypernatremia (principal); J69.0 Pneumonitis due to inhalation of food and vomit; E86.0 Dehydration; L89.312 Pressure ulcer of right buttock, stage 2; L89.152 Pressure ulcer of sacral region, stage 2; L89.322 Pressure ulcer of left buttock, stage 2; L97.529 Non-pressure chronic ulcer of other part of left foot with unspecified severity; D69.6 Thrombocytopenia, unspecified; K56.41 Fecal impaction; G30.9 Alzheimer's disease, unspecified; F02.80 Dementia in other diseases classified elsewhere, unspecified severity, without behavioral disturbance, psychotic disturbance, mood disturbance, and anxiety; E78.5 Hyperlipidemia, unspecified; R32 Unspecified urinary incontinence; K90.0 Celiac disease; F32.9 Major depressive disorder, single episode, unspecified
CPT/HCPCS: 2NSBP; 84133; 84300; 36415; 73630-LT; 74176; 81001; 81003; 82436; 82570; 87040; 87070; 87086; 87449; 87450; 93005; 93010; 97161-GP; J1644